=== PATIENT | female | born 1935 | race Caucasian/White ===

== ENCOUNTER 2017-06-07 10:36 | Outpatient (CLI) | payer OTHER | END 2017-06-07 10:41 | disposition home or self-care (01) | LOC: RAD 501 10:36 | DX: M54.5 Low back pain (principal) ==

== ENCOUNTER 2018-02-15 09:30 | Outpatient (CLI) | payer OTHER | END 2018-02-15 09:42 | disposition home or self-care (01) | LOC: RAD 501 09:30 | DX: H35.342 Macular cyst, hole, or pseudohole, left eye (principal) ==

== ENCOUNTER 2018-03-20 09:43 | Outpatient (CLI) | payer OTHER | END 2018-03-20 16:58 | disposition home or self-care (01) | LOC: TOM 09:43 | DX: Z12.31 Encounter for screening mammogram for malignant neoplasm of breast (principal); Z87.898 Personal history of other specified conditions; N64.89 Other specified disorders of breast; R91.1 Solitary pulmonary nodule ==

== ENCOUNTER 2018-07-22 14:11 | Outpatient (CLI) | payer OTHER | END 2018-07-22 14:15 | disposition home or self-care (01) | LOC: SONOGRAMA 14:11 → MAMO-SONO 14:15 → SONOGRAMA 14:15 | DX: N18.3 Chronic kidney disease, stage 3 (moderate) (principal) ==

== ENCOUNTER → 2019-07-22 | Outpatient (CLI) | payer OTHER | END | disposition home or self-care (01) | LOC: MRI 14:11 | DX: R25.1 Tremor, unspecified (principal) | CPT/HCPCS: 70553; A9575 ==

== ENCOUNTER 2022-01-31 10:00 | Outpatient (CLI) | payer OTHER | END 2022-01-31 10:11 | disposition home or self-care (01) | LOC: RAD 10:00 | PROVIDERS: ATTEND Neuromusculoskeletal Medicine & OMM | DX: G20 Parkinson's disease (principal); N18.32 Chronic kidney disease, stage 3b | CPT/HCPCS: 70551 ==

== ENCOUNTER 2023-06-11 13:46 | Outpatient (CLI) | payer OTHER | END 2023-06-11 13:56 | disposition home or self-care (01) | LOC: MRI 13:46 | PROVIDERS: ATTEND Neuromusculoskeletal Medicine & OMM | DX: G20.A2 Parkinson's disease without dyskinesia, with fluctuations (principal) | CPT/HCPCS: 70551 ==

== ENCOUNTER 2024-07-07 12:57 | Outpatient (CLI) | payer OTHER | END 2024-07-07 13:07 | disposition home or self-care (01) | LOC: SONOGRAMA 12:57 | PROVIDERS: ATTEND Internal Medicine | DX: N18.2 Chronic kidney disease, stage 2 (mild) (principal) ==

== ENCOUNTER 2024-11-04 09:52 | Outpatient (CLI) | payer OTHER | END 2024-11-04 09:57 | disposition home or self-care (01) | LOC: MRI 09:52 | PROVIDERS: ATTEND Neuromusculoskeletal Medicine & OMM | DX: G31.89 Other specified degenerative diseases of nervous system (principal); F03.90 Unspecified dementia, unspecified severity, without behavioral disturbance, psychotic disturbance, mood disturbance, and anxiety; F09 Unspecified mental disorder due to known physiological condition | CPT/HCPCS: 70551 ==